=== PATIENT | female | born 1990 | race Caucasian/White ===

== ENCOUNTER 2023-01-17 08:11 | Outpatient (CLI) | payer BC, SELFPAY ==
--- NOTE | 2023-01-17 08:15 | CRLHL7_ITS ---
For Patients: As a result of the Century Cures Act, medical imaging exams and procedure reports are released immediately into your electronic medical record. You may view this report before your referring provider. If you have questions, please contact your health care provider. INDICATION: First trimester scan, establish dates. TECHNIQUE: Real-time garcia-scale imaging of the pelvis was performed. FINDINGS: Sonographic imaging demonstrates a single living intrauterine gestation. The embryo demonstrates a regular cardiac rate measuring 163 beats per minute. The embryo`s crown-rump length measurement of 1.7 cm corresponds to a gestational age of 8 weeks 1 day with a sonographic due date of 08/28/2023. There is a normal-appearing yolk sac. Small subchorionic hemorrhage measuring 1.6 x 0.7 x 1.4 centimeters. Right ovarian corpus luteum cyst. IMPRESSION: Normal first trimester OB ultrasound exam. Gestational age calculated at 8 weeks 1 day with a sonographic due date of 08/28/2023. Subchorionic hemorrhage measuring 1.6 x 0.7 x 1.4 centimeters. Dictated by Saida Lyles MD @ 01/17/2023 9:30:00 AM (Electronically Signed)
== END 2023-01-17 08:12 | disposition home or self-care (01) ==
LOC: US 08:12
PROVIDERS: PCP Family Medicine; Visit Provider Registered Nurse
DX: Z34.91 Encounter for supervision of normal pregnancy, unspecified, first trimester (principal); Z3A.08 8 weeks gestation of pregnancy
CPT/HCPCS: 76817; 82565; 82570; 84156; 84450; 84460; 84520; 86592; 86703; 86762; 86787; 86803; 86850; 86900; 86901; 87086; 87340; 87491; 87591

== ENCOUNTER 2023-01-21 13:45 | Outpatient (CLI) | payer BC, SELFPAY ==
[2023-01-21 18:11] LABS: Total Protein Urine 21 mg/dL
[2023-01-21 18:12] LABS: Creatinine Urine 30.7 mg/dL
[2023-01-21 18:26] LABS: Collection Time Urine 3100 Hours; Total Protein 24 Hour Urine 5 mg/dL; Total Volume 24 Hour Urine 24 ml; Urine Creatinine mg/24 Hour 0 mg/Day
== END 2023-01-21 13:46 | disposition home or self-care (01) ==
LOC: NFLDREF 13:45
PROVIDERS: Obstetrics & Gynecology; PCP Family Medicine; Visit Provider Registered Nurse
DX: Z87.59 Personal history of other complications of pregnancy, childbirth and the puerperium (principal)
CPT/HCPCS: 82570; 84156

== ENCOUNTER 2023-03-06 12:49 | Emergency (ER) | payer BC, SELFPAY ==
[2023-03-06 12:54] VITALS: BP 130/77; PULSE 97; TEMP 37.3; O2SAT 99; BMI 23.0
--- NOTE | 2023-03-06 13:21 | ED_ITS ---
HPI - Female Genitourinary General Chief complaint: Urogenital Problems, Female Stated complaint: Cannot urinate Time Seen by Provider: 03/06/23 12:52 History of Present Illness HPI Narrative: Patient is a 33-year-old woman who is 2 para 1 woman who comes in today with inability to urinate. Her 1st was complicated by early rupture the membranes and she spent 9 weeks at [facility] before having her baby. Patient was in [place] with this week ago and was unable to urinate. As result a catheter was placed and she drained over a L of urine. She has been able to for the most part into her bladder since but today is unable to empty her bladder at all. She has no dysuria no abdominal pain other than the distention of her bladder. She otherwise is feeling well the is going along just fine. There is no fever chills no vaginal discharge or bleeding. Related Data Home Medications Medication Instructions Recorded Confirmed docosahexaenoic acid 200 mg mg PO 01/17/23 02/14/23 capsule ( DHA) aspirin 81 mg tablet,delayed 81 mg PO QDAY 02/14/23 02/14/23 release pyridoxine (vitamin B6) 25 mg 25 mg PO TID 02/14/23 02/14/23 tablet Allergies Allergy/AdvReac Type Severity Reaction Status Date / Time Penicillins Allergy Severe Verified 03/06/23 12:54 Review of Systems Status of ROS: Reports: 10 or more systems reviewed and unremarkable except as noted in History and below PFSH PFSH Surgical History History of wisdom tooth extraction ?K08.409 - Partial loss of teeth, unspecified cause, unspecified class (ICD- 10) Family History Maternal Grandmother Colon cancer Paternal Grandmother Breast cancer Family/Other Ovarian cancer Family/Other Lymphoma Mother High blood pressure Social History Narrative: . 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 Nonsmoker. Smoking Status: Never smoker Do you use any of these nicotine containing products: None Second hand tobacco smoke exposure: No How often do you have a drink containing alcohol: never How often do you have six or more drinks on one occasion: Never AUDIT-C Alcohol total score: 0 Non-prescribed substance use: denies use Little interest or pleasure in doing things: not at all Feeling down, depressed, or hopeless: not at all service: No Exam Narrative: Exam Narrative: EXAM GENERAL: Patient appears comfortable and well. EYES: No scleral icterus. LYMPH: No supraclavicular or cervical lymphadenopathy. SKIN: Visible skin seen during exam normal or with benign process only. EXT: No dependent lower extremity pedal edema. HEART: Regular rate and rhythm with no murmurs, rubs, or gallops. LUNGS: Clear to auscultation bilaterally with no crackles or wheezes. ABD: Soft, non tender, non distended. PSYCH: Good eye contact, speech is not pressured. Const: Vital Signs, click to edit/add: Vital Signs - 24 hr 03/06/23 12:54 Temperature 99.1 F Pulse Rate [Pulse Oximeter] 97 Blood Pressure [Ri ght Upper Arm] 130/77 Pulse Oximetry 99 Oxygen Delivery Me thod Room Air Course Course Hospital Course: Patient seen examined. I did consult with OBGYN in the did recommend running a UA which we did. We did place Tomlinson catheter and OB did recommend that we leave the catheter in place until she follows up as an outpatient. Vital Signs Vital signs: Initial Vital Signs Temperature 99.1 F 03/06/23 12:54 Temperature Source Temporal Artery Scan 03/06/23 12:54 Pulse Rate 97 03/06/23 12:54 Pulse Rhythm Regular 03/06/23 12:54 Blood Pressure 130/77 03/06/23 12:54 Blood Pressure Mean 94 03/06/23 12:54 Blood Pressure Position Supine 03/06/23 12:54 Pulse Oximetry 99 03/06/23 12:54 Oxygen Delivery Method Room Air 03/06/23 12:54 Vital Signs Temperature 99.1 F 03/06/23 12:54 Pulse Rate 97 03/06/23 12:54 Blood Pressure 130/77 03/06/23 12:54 Pulse Oximetry 99 03/06/23 12:54 Oxygen Delivery Method Room Air 03/06/23 12:54 Temperature 99.1 F 03/06/23 12:54 Pulse Rate 97 03/06/23 12:54 Blood Pressure 130/77 03/06/23 12:54 Pulse Oximetry 99 03/06/23 12:54 Oxygen Delivery Method Room Air 03/06/23 12:54 MDM - Female Genitourinary MDM Narrative Medical decision making narrative: Patient presents 21 weeks with inability to urinate. I did consult with OBGYN in the do feel like this is likely secondary to positional development of the fetus and expansion of the uterus. After explaining the risks and benefits we did place a Tomlinson catheter and left in place. She will continue her current care will follow-up with her OBGYN as outpatient next few days. Differential diagnosis included but not limited to urinary obstruction, urinary tract infection, spontaneous , acute abdomen cystitis Differential Diagnosis Differential diagnosis: Likely urinary tract infection Discharge Plan Discharge Clinical Impression: Acute urinary retention Condition: Improved Instructions: Acute Urinary Retention in Women (ED) Additional Instructions: Tomlinson catheter care as discussed Continue previous care Follow-up with OBGYN in the next few days. Activity Level: No Restrictions Discharge Diet: Regular Prescriptions: No Action DHA 200 mg capsule PO aspirin 81 mg tablet,delayed release (DR/EC) 81 mg PO QDAY pyridoxine (vitamin B6) 25 mg tablet 25 mg PO TID Follow Up/Referrals: Lakshmi Cramer MD [Primary Care Provider] - Stand Alone Forms: [employer] Info Instructions
[2023-03-06 13:42] LABS: Appearance Urine Slightly Cloudy (Clear); Bilirubin Urine Negative (Negative); Blood Urine Negative (Negative); Color Urine Yellow (Yellow); Glucose Urine Negative (Negative); Ketones Urine Negative (Negative); Leukocyte Esterase Urine Negative (Negative); Nitrite Urine Negative (Negative); Protein Urine Negative (Negative); Urobilinogen Urine 0.2 (0.2-1.0); pH Urine 7.5 (5.0-8.5)
[2023-03-06 14:27] LABS: RBC Urine 0-2 (0-2); WBC Urine 0-2 (0-5)
--- NOTE | 2023-03-06 14:40 | ED.NURSE ---
did instruct dolores on proper catheter care. did place leg bag and written material was given. had 650 ml emptied from catheter bag. a #14 fr velasco was inserted at 1440.
== END 2023-03-06 14:40 | disposition home or self-care (01) ==
LOC: ED 13:44
PROVIDERS: Emergency Provider Internal Medicine; PCP Family Medicine
DX: R33.9 Retention of urine, unspecified (principal)
CPT/HCPCS: 51702; 81003; 81015; 99283

== ENCOUNTER 2023-03-14 07:17 | Outpatient (CLI) | payer BC, SELFPAY ==
--- NOTE | 2023-03-14 07:15 | CRLHL7_ITS ---
For Patients: As a result of the Century Cures Act, medical imaging exams and procedure reports are released immediately into your electronic medical record. You may view this report before your referring provider. If you have questions, please contact your health care provider. INDICATION: Cervical length measurement and uterine position COMPARISON: 01/17/2023 TECHNIQUE: Real-time garcia-scale imaging of the pelvis was performed. FINDINGS: heart rate 131 beats per minute. Amniotic fluid normal with single deepest pocket 3.0 cm. Cervix is closed and measures 3.7 cm in length with transabdominal technique and measures 3.8 cm with transvaginal technique. The posterior placenta is located 4.3 cm from the internal cervical os. position is breech. IMPRESSION: Anteverted uterus. Closed cervix measuring 3.8 cm. Dictated by Owen Machuca MD @ 03/14/2023 11:38:02 AM (Electronically Signed)
== END 2023-03-14 07:18 | disposition home or self-care (01) ==
LOC: US 07:18
PROVIDERS: PCP Family Medicine; Visit Provider Obstetrics & Gynecology
DX: Z36.86 Encounter for antenatal screening for cervical length (principal)
CPT/HCPCS: 76816; 76817

== ENCOUNTER 2023-04-02 11:38 | Outpatient (CLI) | payer BC, SELFPAY ==
--- NOTE | 2023-04-02 11:45 | CRLHL7_ITS ---
For Patients: As a result of the Century Cures Act, medical imaging exams and procedure reports are released immediately into your electronic medical record. You may view this report before your referring provider. If you have questions, please contact your health care provider. INDICATION: LABOR COMPARISON: 03/14/2023 TECHNIQUE: Real-time garcia-scale imaging of the pelvis was performed. Transabdominal technique. FINDINGS: Cervix is closed and measures 4.7 cm. The uterus is heterogeneous on the left with areas of increased echotexture and a prominent fold. Normal vascularity is present. Placenta is not well evaluated on the current exam. heart rate measures 145 beats per minute. Normal amniotic fluid with single deepest pocket 5.8 cm. position harry breech. Placenta is posterior. IMPRESSION: Cervix is closed and measures 4.7 cm. Heterogeneous appearance of the left side of the uterus, indeterminate. Attention on anatomic survey recommended. Dictated by Owen Machuca MD @ 04/02/2023 12:46:35 PM (Electronically Signed)
== END 2023-04-02 11:39 | disposition home or self-care (01) ==
PROVIDERS: PCP Family Medicine; Visit Provider Obstetrics & Gynecology
DX: O47.00 False labor before 37 completed weeks of gestation, unspecified trimester (principal)
CPT/HCPCS: 76816

== ENCOUNTER 2023-04-09 12:27 | Outpatient (CLI) | payer BC, SELFPAY | END 2023-04-09 12:28 | disposition home or self-care (01) | LOC: US 12:27 | PROVIDERS: PCP Family Medicine; Visit Provider Pediatrics Neonatal-Perinatal Medicine | DX: O09.822 Supervision of pregnancy with history of in utero procedure during previous pregnancy, second trimester (principal); Z87.51 Personal history of pre-term labor; Z3A.19 19 weeks gestation of pregnancy | CPT/HCPCS: 76811 ==

== ENCOUNTER 2023-05-09 09:07 | Outpatient (CLI) | payer BC, SELFPAY ==
--- NOTE | 2023-05-09 09:15 | CRLHL7_ITS ---
For Patients: As a result of the Century Cures Act, medical imaging exams and procedure reports are released immediately into your electronic medical record. You may view this report before your referring provider. If you have questions, please contact your health care provider. INDICATION: history of pre-term labor COMPARISON: 04/09/2023 TECHNIQUE: Real time garcia scale imaging of the fetus was performed. FINDINGS: Sonographic imaging demonstrates a single living intrauterine gestation. Fetus demonstrates a regular cardiac rate of 143 beats per minute. Fetus has a transverse position, head maternal right. The placenta lies posterior without evidence of placenta previa. Amniotic fluid volume appears normal and there is a single deepest vertical pocket: 6.7 cm. The estimated weight is 696gm which lies at the 62nd %. On the prior OB ultrasound exam dated 03/30/2023 the estimated weight was at the 73rd%. BPD 44th percentile. HC 19th percentile. AC 56th percentile. FL 61st percentile. The HC/AC ratio measures 1.09 range (1.04-1.22). IMPRESSION: Sonographic gestational age 24 weeks 1 day and sonographic due date 08/28/2023. Good correlation with dates. Estimated weight 62nd percentile. Abdominal circumference 56th percentile. Dictated by Owen Machuca MD @ 05/09/2023 2:22:17 PM (Electronically Signed)
== END 2023-05-09 09:08 | disposition home or self-care (01) ==
LOC: US 09:08
PROVIDERS: PCP Family Medicine; Visit Provider Obstetrics & Gynecology
DX: O09.212 Supervision of pregnancy with history of pre-term labor, second trimester (principal); Z3A.24 24 weeks gestation of pregnancy
CPT/HCPCS: 76816

== ENCOUNTER 2023-05-23 12:02 | Outpatient (CLI) | payer BC, SELFPAY ==
--- NOTE | 2023-05-23 12:15 | CRLHL7_ITS ---
For Patients: As a result of the Century Cures Act, medical imaging exams and procedure reports are released immediately into your electronic medical record. You may view this report before your referring provider. If you have questions, please contact your health care provider. INDICATION: HX LABOR, CX LENGTH CHECK COMPARISON: 05/09/2023 TECHNIQUE: Real time garcia scale imaging of the fetus was performed. FINDINGS: Sonographic imaging demonstrates a single living intrauterine gestation. Fetus demonstrates a regular cardiac rate of 141 beats per minute. Fetus has a variable position. The placenta lies posteriorly. Amniotic fluid volume appears normal and there is a single deepest vertical pocket: 7.5 cm. The cervix is closed and measures 4.2 cm. IMPRESSION: Closed cervix measuring 4.2 cm. Dictated by Owen Machuca MD @ 05/23/2023 4:49:35 PM (Electronically Signed)
== END 2023-05-23 12:03 | disposition home or self-care (01) ==
LOC: US 12:03
PROVIDERS: PCP Family Medicine; Visit Provider Obstetrics & Gynecology
DX: O09.219 Supervision of pregnancy with history of pre-term labor, unspecified trimester (principal)
CPT/HCPCS: 76816

== ENCOUNTER 2023-06-06 08:05 | Outpatient (CLI) | payer BC, SELFPAY ==
--- NOTE | 2023-06-06 08:15 | CRLHL7_ITS ---
For Patients: As a result of the Century Cures Act, medical imaging exams and procedure reports are released immediately into your electronic medical record. You may view this report before your referring provider. If you have questions, please contact your health care provider. INDICATION: HX LABOR, GROWTH COMPARISON: 05/23/2023 TECHNIQUE: Real time garcia scale imaging of the fetus was performed. FINDINGS: Sonographic imaging demonstrates a single living intrauterine gestation. Fetus demonstrates a regular cardiac rate of 138 beats per minute. Fetus has a breech position. The placenta lies posteriorly. Amniotic fluid volume appears normal and there is a single deepest vertical pocket: 7.5 cm. The estimated weight is 1243gm which lies at the 58th %. On the prior OB ultrasound exam dated 05/09/2023 the estimated weight was at the 62nd%. BPD 40th percentile. HC 20th percentile. AC 70th percentile. FL 42nd present. The HC/AC ratio measures 1.04 range (1.01-1.21). IMPRESSION: Sonographic gestational age 28 weeks 2 days and sonographic due date 08/27/2023. Good correlation with dates. Normal interval growth. Estimated weight 58th percentile. Abdominal circumference 70th percentile. Dictated by Owen Machuca MD @ 06/06/2023 9:33:28 AM (Electronically Signed)
== END 2023-06-06 08:06 | disposition home or self-care (01) ==
LOC: US 08:06
PROVIDERS: PCP Family Medicine; Visit Provider Obstetrics & Gynecology
DX: O09.213 Supervision of pregnancy with history of pre-term labor, third trimester (principal); Z3A.28 28 weeks gestation of pregnancy
CPT/HCPCS: 76816; 86592

== ENCOUNTER 2023-07-04 08:17 | Outpatient (CLI) | payer BC, SELFPAY ==
--- NOTE | 2023-07-04 08:15 | CRLHL7_ITS ---
For Patients: As a result of the Century Cures Act, medical imaging exams and procedure reports are released immediately into your electronic medical record. You may view this report before your referring provider. If you have questions, please contact your health care provider. INDICATION: hx labor, growth COMPARISON: 06/06/2023 TECHNIQUE: Real time garcia scale imaging of the fetus was performed. FINDINGS: Sonographic imaging demonstrates a single living intrauterine gestation. Fetus demonstrates a regular cardiac rate of 132 beats per minute. Fetus has a transverse position. The placenta lies posteriorly. Amniotic fluid volume appears increased and there is a single deepest vertical pocket: 8.5 cm. TATE 27.2 cm. The estimated weight is 2046gm which lies at the 65th %. On the prior OB ultrasound exam dated 06/06/2023 the estimated weight was at the 58th%. BPD 72nd percentile. HC 33rd percentile. AC 73rd percentile. FL 53rd percentile. The HC/AC ratio measures 1.03 range (0.96-1.11). IMPRESSION: Sonographic gestational age 32 weeks 6 days and sonographic due date 08/23/2023. Sonographic age 6 days ahead of the clinical age. Estimated weight 65th percentile. Abdominal circumference 73rd percentile. Polyhydramnios. TATE 27.2 cm. Dictated by Owen Machuca MD @ 07/04/2023 9:12:39 AM (Electronically Signed)
== END 2023-07-04 08:18 | disposition home or self-care (01) ==
LOC: US 08:18
PROVIDERS: PCP Family Medicine; Visit Provider Obstetrics & Gynecology
DX: O36.63X0 Maternal care for excessive fetal growth, third trimester, not applicable or unspecified (principal); O40.3XX0 Polyhydramnios, third trimester, not applicable or unspecified; Z3A.32 32 weeks gestation of pregnancy; Z87.51 Personal history of pre-term labor
CPT/HCPCS: 76816

== ENCOUNTER 2023-07-09 08:29 | Outpatient (CLI) | payer BC, SELFPAY ==
--- NOTE | 2023-07-09 08:45 | CRLHL7_ITS ---
For Patients: As a result of the Century Cures Act, medical imaging exams and procedure reports are released immediately into your electronic medical record. You may view this report before your referring provider. If you have questions, please contact your health care provider. INDICATION: POLYHYDRAMNIOS, HX LABOR COMPARISON: 07/04/2023 TECHNIQUE: Real time garcia scale imaging of the fetus was performed. FINDINGS: Sonographic imaging demonstrates a single living intrauterine gestation. Fetus demonstrates a regular cardiac rate of 154 beats per minute. Fetus has a transverse position. The placenta lies posteriorly. Amniotic fluid volume appears normal and there is a single deepest vertical pocket: 6.4 cm. TATE 15.7 cm. Normal gross body movements, tone and respiratory activity. Cervix is closed and measures 3.4 cm. IMPRESSION: Biophysical profile 07/01. Closed cervix measuring 3.4 cm. Normal amniotic fluid. TATE 15.7 cm. Dictated by Owen Machuca MD @ 07/09/2023 9:23:04 AM (Electronically Signed)
== END 2023-07-09 08:30 | disposition home or self-care (01) ==
LOC: US 08:30
PROVIDERS: PCP Family Medicine; Visit Provider Obstetrics & Gynecology
DX: O40.9XX0 Polyhydramnios, unspecified trimester, not applicable or unspecified (principal)
CPT/HCPCS: 76819

== ENCOUNTER 2023-07-18 07:21 | Outpatient (CLI) | payer BC, SELFPAY ==
--- NOTE | 2023-07-18 07:15 | CRLHL7_ITS ---
For Patients: As a result of the Century Cures Act, medical imaging exams and procedure reports are released immediately into your electronic medical record. You may view this report before your referring provider. If you have questions, please contact your health care provider. INDICATION: POLYHYDRAMINOS COMPARISON: 07/09/2023 TECHNIQUE: Real time garcia scale imaging of the fetus was performed. Without non-stress testing. FINDINGS: Sonographic imaging demonstrates a single living intrauterine gestation. Fetus demonstrates a regular cardiac rate of 148 beats per minute. Fetus has a variable position. The amniotic fluid volume appears upper limits of normal and there is a single deepest pocket measurement of 9.3 cm. TATE is 25.7 cm. The fetus was active and demonstrated normal breathing movements. There was normal flexion and extension of the trunk and extremities. Normal nose and lips. IMPRESSION: Normal biophysical profile score of 8 out of 8. Upper limits of normal amniotic fluid with TATE 25.7 cm. Dictated by Owen Machuca MD @ 07/19/2023 4:10:30 PM (Electronically Signed)
== END 2023-07-18 07:22 | disposition home or self-care (01) ==
LOC: US 07:22
PROVIDERS: PCP Family Medicine; Visit Provider Obstetrics & Gynecology
DX: O40.9XX0 Polyhydramnios, unspecified trimester, not applicable or unspecified (principal)
CPT/HCPCS: 76819

== ENCOUNTER 2023-07-25 09:08 | Outpatient (CLI) | payer BC, SELFPAY ==
--- NOTE | 2023-07-25 09:15 | CRLHL7_ITS ---
For Patients: As a result of the Century Cures Act, medical imaging exams and procedure reports are released immediately into your electronic medical record. You may view this report before your referring provider. If you have questions, please contact your health care provider. INDICATION: POLYHYDRAMNIOS TECHNIQUE: Real time garcia scale imaging of the fetus was performed. COMPARISON: 07/18/2023 FINDINGS: Sonographic imaging demonstrates a single living intrauterine gestation. Fetus demonstrates a regular cardiac rate of 139 beats per minute. Fetus has a transverse position, head maternal right. The placenta lies posterior without evidence of placenta previa. Amniotic fluid volume appears upper limits of normal and there is a single deepest pocket of 10.3 cm. TATE 24.7 cm. The estimated weight is 2880gm which lies at the 81st %. On the prior OB ultrasound dated 07/04/2023 the estimated weight was at the 65th percentile. BPD 84th percentile. HC 84th percentile. AC 88th percentile. FL 50th percentile. The fetus was active and demonstrated normal breathing movements. There was normal flexion and extension of the trunk and extremities. IMPRESSION: Normal biophysical profile score 8/8. Sonographic gestational age 36 weeks 3 days and a sonographic due date 08/19/2023. Sonographic age 10 days ahead of the clinical age. Estimated weight 81st percentile. Abdominal circumference 88th percentile. Dictated by Owen Machuca MD @ 07/25/2023 1:20:30 PM (Electronically Signed)
== END 2023-07-25 09:09 | disposition home or self-care (01) ==
LOC: US 09:08
PROVIDERS: PCP Family Medicine; Visit Provider Obstetrics & Gynecology
DX: O40.3XX0 Polyhydramnios, third trimester, not applicable or unspecified (principal); Z3A.36 36 weeks gestation of pregnancy
CPT/HCPCS: 76816; 76819

== ENCOUNTER 2023-08-01 08:13 | Outpatient (CLI) | payer BC, SELFPAY ==
--- NOTE | 2023-08-01 08:15 | CRLHL7_ITS ---
For Patients: As a result of the Century Cures Act, medical imaging exams and procedure reports are released immediately into your electronic medical record. You may view this report before your referring provider. If you have questions, please contact your health care provider. INDICATION: POLYHYDRAMNIOS COMPARISON: 07/25/2023 TECHNIQUE: Real time garcia scale imaging of the fetus was performed. Without non-stress testing. FINDINGS: Sonographic imaging demonstrates a single living intrauterine gestation. Fetus demonstrates a regular cardiac rate of 134 beats per minute. Fetus has a cephalic position. The amniotic fluid volume appears increased and there is a single deepest pocket measurement of 8.2 cm. TATE 29.4 cm. The fetus was active and demonstrated normal breathing movements. There was normal flexion and extension of the trunk and extremities. IMPRESSION: Normal biophysical profile score of 8 out of 8. Dictated by Owen Machuca MD @ 08/01/2023 10:40:03 AM (Electronically Signed)
== END 2023-08-01 08:14 | disposition home or self-care (01) ==
LOC: US 08:14
PROVIDERS: PCP Family Medicine; Visit Provider Obstetrics & Gynecology
DX: O40.9XX0 Polyhydramnios, unspecified trimester, not applicable or unspecified (principal)
CPT/HCPCS: 76819; 87081; 87653

== ENCOUNTER 2023-08-08 08:18 | Outpatient (CLI) | payer BC, SELFPAY ==
--- NOTE | 2023-08-08 08:15 | CRLHL7_ITS ---
For Patients: As a result of the Century Cures Act, medical imaging exams and procedure reports are released immediately into your electronic medical record. You may view this report before your referring provider. If you have questions, please contact your health care provider. INDICATION: polyhydramnios COMPARISON: 08/01/2023 TECHNIQUE: Real time garcia scale imaging of the fetus was performed. Without non-stress testing. FINDINGS: Sonographic imaging demonstrates a single living intrauterine gestation. Fetus demonstrates a regular cardiac rate of 145 beats per minute. Fetus has a vertex position. The amniotic fluid volume appears increased and there is a single deepest pocket measurement of 8.2 cm. TATE 27.7 cm. The fetus was active and demonstrated normal breathing movements. There was normal flexion and extension of the trunk and extremities. IMPRESSION: Normal biophysical profile score of 8 out of 8. Polyhydramnios. TATE 27.7 cm. On the previous study, the TATE was 29.4 cm. Dictated by Owen Machuca MD @ 08/08/2023 11:38:33 AM (Electronically Signed)
== END 2023-08-08 08:19 | disposition home or self-care (01) ==
LOC: US 08:18
PROVIDERS: PCP Family Medicine; Visit Provider Obstetrics & Gynecology
DX: O40.9XX0 Polyhydramnios, unspecified trimester, not applicable or unspecified (principal)
CPT/HCPCS: 76819

== ENCOUNTER 2023-08-16 17:01 | Inpatient (IN) | payer BC, SELFPAY ==
[2023-08-16 17:16] VITALS: PULSE 84; O2SAT 98
[2023-08-16 17:17] VITALS: BP 116/78; PULSE 83; RESP 16; TEMP 36.9
[2023-08-16 17:23] VITALS: BMI 26.9
[2023-08-16 18:00] LABS: Basophils Absolute Auto 0.01 K/uL (0.00-0.30); Basophils Percent Auto 0.1 % (0.0-3.0); Eosinophils Absolute Auto 0.08 K/uL (0.00-0.50); Eosinophils Percent Auto 1.1 % (0.0-7.0); Hematocrit 32.3 % (33.0-51.0); Hemoglobin* 11.4 gm/dL (12.0-16.0); Immature Granulocytes Abs Auto 0.01 K/uL (0.00-0.30); Immature Granulocytes Pct Auto 0.1 %; Lymphocytes Absolute Auto 1.79 K/uL (0.90-2.90); Mean Corpuscular HGB Conc 35 gm/dL (32-36); Mean Corpuscular Hemoglobin 32 pg (26-34); Mean Corpuscular Volume 91 fL (80-100); Monocytes Percent Auto 8.3 % (0.0-11.0); Neutrophils Absolute Auto 4.94 K/uL (1.7-7.0); Neutrophils Percent Auto 66.4 % (42.0-72.0); Platelet Count* 213 K/uL (140-440); RDW Coefficient of Variation % 12.3 % (11.5-15.5); Red Blood Count 3.57 m/uL (4.00-5.20); White Blood Count* 7.45 K/uL (4.50-11.00)
[2023-08-16 18:02] LABS: Slide Review Reflex No
[2023-08-16] MEDS: miSOPROStoL 25 MCG/0.25 TABLET PO ×3 (18:27→22:37)
[2023-08-16 20:31] VITALS: BP 118/77; PULSE 65; TEMP 37.1
[2023-08-16 22:36] VITALS: BP 135/71; PULSE 53; TEMP 36.5
[2023-08-17] VITALS (35 sets, daily range): BP systolic 90–137; BP diastolic 51–82; PULSE 51–123; RESP 16–18; TEMP 36.6–37; O2SAT 95–100
[2023-08-17] MEDS: MORPHINE 10 MG/ML inj IM (02:24)
[2023-08-17] MEDS: hydrOXYzine pamoate 25 MG CAPSULE 100 MG PO (02:25)
[2023-08-17] MEDS: miSOPROStoL 25 MCG/0.25 TABLET PO ×2 (03:16→06:28)
--- NOTE | 2023-08-17 09:59 | P.OBHP_ITS ---
OB - H&P: HPI Labor/Induction History of Present Illness Time Seen by Provider: 08:30 Date Seen: 08/17/23 Chief complaint: Maternity : 2 Para: 1 Date of last menstrual period: 11/22/22 Estimated date of delivery: 08/29/23 Gestational age based on last menstrual period: 38 Indications for induction: other Narrative: Yoana Owens is a 33 year old female G2P 0101 at 38 weeks 2 days by LMP consistent with 1st trimester ultrasound who presents to [facility] for scheduled induction of labor secondary to moderate polyhydramnios. This has been complicated by advanced maternal age with normal screening, history of preeclampsia on prophylactic aspirin, history of delivery at 32 weeks following P PROM at 23 weeks. Patient reports no symptoms including difficulty breathing or pressure from the polyhydramnios. Normal movement, no bleeding, no leakage of fluid. No other significant health changes since her most recent visit. Specific Issues/Plans Spouse: Estevan Yun. Daughter: Adrianna. Baby: Girl! 1. AMA * MaterniT 21: Negative * Level 2 Dr. Card 04/09/23: Normal anatomy 2. History of PPROM at 23 weeks and delivery at 32 weeks * Reviewed records from [place] 07/2020 preconception counseling visit. Recommendations include: 12-13w first trimester anatomy. 12w start ASA. 16w cervical length screening, 18-20w anatomy scan. Would not prolong past 39w given h/o growth restriction and abruption in prior . * Referral placed for therapy: Sabine Underwood who specializes in traumatic events during and . * Per Dr. Card, continue cervical length screening every 2 weeks until 26 weeks and Q3-4 weeks growth scans * 05/09: EFW 62%tile, AC 56%tile. Cervical length 4.4 cm * 05/23: closed cervix 4.2 cm 3. History of preeclampsia and IUGR * 01/17/2023: Baseline preeclampsia labs: Creat 0.4, BUN 8, AST 17, ALT 14, hgb 12.2, plts 203. Urine P/C: 0.4 (H) * 24hr urine protein: 5mg * Rec. baby ASA at 12 wks * Biweekly testing (BPP alternating with NST) for IUGR if identified 4. Isolated Polyhydramnios * Dx on growth scan at 32 weeks (07/04): EWF 65%tile, AC 73%tile. SDP 8.5 cm and TATE 27.2 cm. Cx 4.0 cm * Normal 1 hr gtt and anatomy scan * No history of gestational or pre-gestation diabetes * Due to new abnormal finding and adverse outcomes in immediately preceding , will start weekly testing starting at 32 weeks with BPP * 07/31: TATE 29.4 cm, SDP 8.2 cm Flu: Completed COVID: Completed in boosted, she did receive the bivalent booster on 07/2022. Tdap: 06/20/2023 Delivery recommended at 39 weeks gestation (MFM given hx IUGR/abruption) - as of 08/08 desires KVNG, open to 40w6d IOL for poly History of Present Dating criteria: based on LMP care: good care Ultrasounds: normal 1st trimester US and normal mid trimester US Abnormal ultrasound findings: BPP on 08/15/2023 showed 8/8 but with an TATE of 34 giving a diagnosis of moderate polyhydramnios complications: other Medical complications: none Labs Blood type: O (+) positive Rubella: immune RPR/VDLR: nonreactive GBS status: negative HBsAG: negative Review of Systems Status of ROS: Reports: 10 or more systems reviewed and unremarkable except as noted in History and below Meds Home Medications and Allergies Home Medications Medication Instructions Recorded Confirmed Type docosahexaenoic acid 200 mg mg PO 01/17/23 08/15/23 History capsule ( DHA) aspirin 81 mg tablet,delayed 81 mg PO QDAY 02/14/23 08/16/23 History release docusate sodium 100 mg capsule 100 mg PO QDAY 03/14/23 08/15/23 History (Colace) polyethylene glycol 3350 17 4 g PO QDAY 03/14/23 08/16/23 History gram/dose oral powder (Miralax) Allergies Allergy/AdvReac Type Severity Reaction Status Date / Time Penicillins Allergy Severe Verified 08/15/23 08:43 OB - H&P: Exam Physical Exam: Vital signs: Temp Pulse Resp BP Pulse Ox 98.5 F 63 16 116/75 99 08/17/23 09:45 08/17/23 08:26 08/17/23 08:20 08/17/23 08:26 08/17/23 08:20 Constitutional: Constitutional: no acute distress and cooperative Routine Respiratory Exam: Comments: No increased work of breathing, easily conversant Routine Cardiovascular Exam: Cardiovascular: RRR Routine Abdominal Exam: Abdominal: Present soft; Absent guarding or tenderness Comments: Gravid Routine Exam: External: Absent lacerations, lesions or vulvar tenderness Perineum Description: Normal Detailed Labor and Delivery Exam: Patient Gravid: Yes Dilation (cm): 2 Effacement (%): 50 Cervix position: mid Consistency: medium Contraction frequency (min): 5 Contraction duration (sec): 50 Tachysystole: No Contraction intensity: Mild Comments: Controlled AROM performed with needling of membrane and slow constant release of clear fluid until no further effluence noted no changes in heart rate noted, no cord prolapse, and good engagement of head into pelvis Fetus (Single): Station: -2 Position: Transverse Amniotic Membrane Status: AROM Amniotic Membrane Fluid Description: Clear Heart Rate Baseline: 140 Monitor Accelerations: Present Monitor Decelerations: None Penitentiary Variability: Moderate (6-25) Routine Extremities Exam: Extremities: Absent calf tenderness or tenderness Routine Neurological Exam: Present alert and oriented X3 Routine Psychiatric Exam: Present normal affect, normal thought process, cooperative, good insight and good judgment OB - Results Labs Labs: Short CBC 08/16/23 Range/Units 17:52 WBC 7.45 (4.50-11.00) K/uL Hgb 11.4 L (12.0-16.0) gm/dL Hct 32.3 L (33.0-51.0) % Plt Count 213 (140-440) K/uL OB - Problem Based A/P Additional Plan (1) Polyhydramnios affecting : Problem details: TATE of 34 on most recent BPP, asymptomatic, indication for induction after 38 w eeks per MFM and consistent with ACOG guidelines Status: Acute Plan: Status post misoprostol cervical ripening overnight, Controlled AROM performed without complication, continue induction process with oxytocin augmentation. Discussed possible causes of polyhydramnios, including congenital anoma lies of the gastrointestinal tract, pediatrics aware and will be evaluated after delivery (2) Anemia affecting : Problem details: Hemoglobin on admission 11.4, normal range for 3rd trimester Status: Acute (3) History of prior with IUGR : Status: Acute (4) Advanced maternal age (AMA) in : Problem details: screening normal Status: Acute (5) History of premature rupture of membranes (PPROM): Problem details: at 23 weeks, delivered at 32 weeks. Will likely need cerclage with future . Status: Acute (6) History of delivery: Problem details: 32 weeks Status: Acute (7) History of pre-eclampsia: Problem details: On aspirin 81 mg daily during , no signs or symptoms at this time Status: Acute Delivery/Labor/Induction Plan Plan: induction Induction method: per misoprostol protocol
[2023-08-17] MEDS: OXYTOCIN 30 unit/500 ML in NS 30 UNIT/500 ML BAG IVPB (11:50)
[2023-08-17] MEDS: LACTATED RINGERS 1000 ML 1,000 ML 999 ML IV (14:07)
--- NOTE | 2023-08-17 14:23 | PM.OBPNL ---
Subjective Time Seen by Provider: 14: Date Seen: 08/17/23 Narrative: Patient is starting to feel contractions more severely in the past hour, now breathing and strong through each contraction, requesting an epidural. Objective Vital Signs: Last Vital Signs Temp 98.4 F 08/17/23 13:30 Pulse 63 08/17/23 08:26 Resp 16 08/17/23 08:20 BP 116/75 08/17/23 08:26 Pulse Ox 99 08/17/23 08:20 Pelvic Exam Dilation (cm): 10 Effacement (%): 100 Station: 0 Comments: Repeat cervical exam when starting pushing after ITN yields palpation of buttocks and retrieval of meconium confirming a change in presentation to breech. 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 We discussed the risks, benefits, and alternatives to the procedure including the following: Bleeding, infection, injury to other adjacent organs, VTE, injury to fetus. Patient's questions were answered and she provided written informed consent to proceed. Anesthesia notified and surgical team assembled.
[2023-08-17] MEDS: fentaNYL 100 MCG/2 ML inj 25 MCG INTRATHECA (14:33)
--- NOTE | 2023-08-17 16:40 | P.OBPRC_ITS ---
Procedure Date of procedure: 08/17/23 Pre-op diagnosis: breech presentation, polyhydramnios Post-op diagnosis: same Procedure Done: Global Will [facility] bill your pro fee for this procedure?: Yes Blood Loss Measurement Type: QBL Bakri Used: No IV fluids (mL): 1,700 Urine Output (mL): 200 Surgeon: Sushil Aleman MD Anesthesia type: General Findings: Viable female in breech presentation with Apgars of 7 and 9 at 1 and 5 minutes respectively, weight pending Normal fallopian tubes and ovaries bilaterally Extension of hysterotomy on left side into broad ligament and down to cervix hemorrhage secondary to bleeding from blood vessels of hysterotomy extension, initial uterine atony Procedure Name: Primary low-transverse Procedure Description: Indication: Patient is a 33-year-old female 101 at 38 weeks 2 days gestation who presented to [facility] for induction of labor secondary to moderate polyhydramnios with TATE 34 cm. She received misoprostol cervical ripening overnight followed by AROM via needling of membranes and controlled release of fluid. At that time cervical exam yielded a cephalic presentation with transverse position. Patient received oxytocin augmentation and progressed to 8 cm dilation at which time she requested an epidural. She continued to dilate quickly and was noted to be complete, and so anesthesia placed an I TN and patient prepared to push, at this point cervical exam yielded a buttocks and breech presentation was diagnosed. Due to the increased risk of planned vaginal breech delivery compared to Caesarean delivery, medical recommendation was made to proceed with surgery and patient agreed. We discussed the risks, benefits, and alternatives to the procedure including the following: Bleeding, infection, injury to other adjacent organs, VTE, injury to fetus. Patient's questions were answered and she provided written informed consent to proceed. Technique: Patient was taken to the operating room where she was placed in the dorsal supine position with a leftward tilt. Antibiotics including cefazolin and azithromycin were administered. A Tomlinson catheter was placed in her bladder. Patient was then prepped and draped in the usual sterile fashion. The patient received general anesthesia which was noted to be adequate prior to skin incision. A 10 blade scalpel used to create a Pfannenstiel incision 2 cm superior to the pubic symphysis and carried through the subcutaneous tissue to the underlying fascia. The fascia was then incised in the midline, the subcutaneous fat cleared from the fascia along the length of the skin incision, and then the fascial incision extended laterally with digital finger fracture. The rectus abdominus muscles were in the midline with digital pressure and the peritoneum entered with blunt finger pressure. The entire incision was then extended with blunt pressure. Aplastic double ring retractor system was placed, and the anterior abdominal wall manually swept with no visceral organs palpated or entrapped by the ring. A 10 blade scalpel was used to create a low-transverse incision in the uterus superior to the bladder flap, and manual pressure applied to the cranial and caudal aspects of the incision for extension. The fetus was delivered atraumatically with breech maneuvers in the following manner: the buttocks was grasped and elevated out of the pelvis and easily delivered out the abdominal wall, followed by the legs, torso. The arms were swept medial and inferior across the torso and delivered sequentially, followed by digital pressure on the maxilla bilaterally to deliver the head. The umbilical cord was clamped, cut, and the infant handed off to the pediatric care team for resuscitation a section of cord was clamped and held for gases if needed. The placenta was delivered spontaneously with gentle traction on the umbilical cord and external massage of the uterus. A lap sponge was used to clear the uterine cavity of all clots and debris. The hysterotomy was examined and extension along the left side noted into the broad ligament and down to the edge of the cervix. Uterine atony and excessive bleeding was noted and the patient received methylergonovine IM along with oxytocin IV. The cervical laceration was 1st repaired with a running lock suture of 0 Vicryl, followed by the broad ligament extension which was repaired and continued into the full hysterotomy repair in a running locked suture of 0 Vicryl. Hemostasis was achieved with a figure of X 0 Vicryl suture at the right corner and electrocoagulation. The remainder of the abdomen and pelvis was swept clear of all blood and clot, the pericolic gutters were bilaterally examined and noted to be free of fluid and clot. The plastic ring retractor was removed from the abdomen and a bladder blade placed to examine the hysterotomy, which remained hemostatic. The bladder flap and rectus muscles were examined and noted to be hemostatic. The fascial incision was closed with a running suture of 0 Vicryl. The subcutaneous tissue was less than 2 cm in depth and did not require reapproximation. Warm saline was used for irrigation and hemostasis of the subcutaneous tissue controlled with electrocoagulation. The skin incision was closed with a running subcuticular stitch of 4-0 Vicryl, Steri-Strips were placed over the incision, and a Mepilex bandage placed. External massage of the uterus was performed to clear the uterus and vagina of all blood and clot. Instrument, sponge, and needle counts were correct x2. The patient was awoken in the OR and transported to the PACU for recovery in stable condition. QBL for the surgery was 2100 mL and CBC and coag labs were drawn in the PACU. Complications: hemorrhage Condition: stable Disposition: PACU OB Delivery Proc Additional Procedures Tubal Ligation at the time of : No Other: No
--- NOTE | 2023-08-17 16:44 | W.PM.NB ---
Nerve Block Nerve Block Time Seen by Provider: 14:50 Date Seen: 08/17/23 Type of block requested by surgeon for post-operative analgesia: TAP Side: bilateral Time out performed: Yes Verification of patient name: Yes Verification of date of : Yes Site marking: site marked Name of person performing procedure: pati marks Continuous monitoring Was continuous monitoring of O2 sat, B/P, satellite project site monitor, recorded every 15 minutes?: Yes Procedure Checklist: sterile prep, needles and gloves Ultrasound guided. Images saved: Yes Medications given in 5ml increments after negative aspiration: Marcaine %: 0.25 mL: 30 and Exparel mL: 10 Patient tolerated procedure well: Yes Block Charges Block Charge (with Pro Fee): TAP Bilateral Use of Ultrasound Machine for Block: Yes- US Guidance/pain block
--- NOTE | 2023-08-17 16:46 | W.ANESCHARGE ---
Anesthesia Charges Start Date/Time Anesthesia Start Date: 08/17/23 Anesthesia Start Time: 14:50 Stop Date/Time Anesthesia Stop Date: 08/17/23 Anesthesia Stop Time: 16:04 Summary Emergency: [employer]
--- NOTE | 2023-08-17 16:47 | P.ANBPRC_ITS ---
PFSH PFSH Surgical History History of wisdom tooth extraction ?K08.409 - Partial loss of teeth, unspecified cause, unspecified class (ICD- 10) Family History Maternal Grandmother Colon cancer Paternal Grandmother Breast cancer Family/Other Ovarian cancer Family/Other Lymphoma Mother High blood pressure Social History Narrative: . 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 Nonsmoker. What is your current living situation?: I presently have a place to live Problems where you live: no known problems In the past 12 months, utilities in danger of being shut off: no In past 12 months, lack of transportation kept you from medical appts, meetings, work, or getting things needed for daily living: no In the past 12 mos, have been you worried that your food would run out before you had money to buy more?: never true In the past 12 mos, the food you bought just didn't last and you didn't have money to buy more?: never true Smoking Status: Never smoker Do you use any of these nicotine containing products: None Second hand tobacco smoke exposure: No How often do you have a drink containing alcohol: never How often do you have six or more drinks on one occasion: Never AUDIT-C Alcohol total score: 0 Non-prescribed substance use: denies use How often does anyone, including family, friends and others, physically hurt you : never How often does anyone, including family, friends and others, insult or talk down to you: never How often does anyone, including family, friends and others, threaten you with harm: never How often does anyone, including family, friends and others, scream or curse at you: never Little interest or pleasure in doing things: not at all Feeling down, depressed, or hopeless: not at all service: No Meds Home Medications and Allergies Home Medications Medication Instructions Recorded Confirmed Type docosahexaenoic acid 200 mg mg PO 01/17/23 08/15/23 History capsule ( DHA) aspirin 81 mg tablet,delayed 81 mg PO QDAY 02/14/23 08/16/23 History release docusate sodium 100 mg capsule 100 mg PO QDAY 04/21/23 09/22/23 History (Colace) polyethylene glycol 3350 17 4 g PO QDAY 03/14/23 08/16/23 History gram/dose oral powder (Miralax) Allergies Allergy/AdvReac Type Severity Reaction Status Date / Time Penicillins Allergy Severe Verified 08/15/23 08:43 Results Labs Labs: Laboratory Results - last 24 hr 08/16/23 17:52 WBC 7.45 RBC 3.57 L Hgb 11.4 L Hct 32.3 L MCV 91 MCH 32 MCHC 35 RDW Coeff of Rosa 12.3 Plt Count 213 Neut % (Auto) 66.4 Lymph % (Auto) 24.0 [place] % (Auto) 8.3 Eos % (Auto) 1.1 Baso % (Auto) 0.1 Neut # (Auto) 4.94 Lymph # (Auto) 1.79 [place] # (Auto) 0.60 Eos # (Auto) 0.08 Baso # (Auto) 0.01 Abs Immat Gran (auto) 0.01 Imm/Tot Granulo (auto) 0.1 Blood Type O Positive Antibody Screen NEGATIVE Vital Signs Vital Signs: Last Vital Signs Temp 97.8 F 08/17/23 16:30 Pulse 82 08/17/23 16:30 Resp 16 08/17/23 16:30 BP 103/71 08/17/23 16:30 Pulse Ox 100 08/17/23 16:30 O2 Del Method Room Air 08/17/23 16:30 Weight: 68.946 kg Height: 160.02 cm Anesthesia Procedures Intrathecal Patient Location: OB Start Time: 14:30 Stop Time: 14:38 Start Date: 08/17/23 Stop Date: 08/17/23 Reason for Block: procedure for pain Patient Position: sitting Preanesthetic Checklist: IV checked, site marked, risks and benefits discussed, surgical consent, monitors and equipment checked, pre-op evaluation, timeout performed and anesthesia consent Prep: chlorhexidine gluconate Monitoring: blood pressure monitoring, continuous pulse oximetry and heart rate Approach: midline Vertebral Space: lumbar (1-5) Needle Type: Sprotte Injection Technique: single-shot Needle Length (cm): 10 cm
[2023-08-17 17:04] LABS: Basophils Percent Auto 0.1 % (0.0-3.0); Eosinophils Percent Auto 0.1 % (0.0-7.0); Hematocrit 26.7 % (33.0-51.0); Hemoglobin* 9.4 gm/dL (12.0-16.0); Immature Granulocytes Pct Auto 0.2 %; Lymphocytes Percent Auto 5.3 % (20-44); Mean Corpuscular HGB Conc 35 gm/dL (32-36); Mean Corpuscular Hemoglobin 32 pg (26-34); Mean Corpuscular Volume 91 fL (80-100); Monocytes Percent Auto 4.4 % (0.0-11.0); Neutrophils Percent Auto 89.9 % (42.0-72.0); Platelet Count* 184 K/uL (140-440); RDW Coefficient of Variation % 12.4 % (11.5-15.5); Red Blood Count 2.92 m/uL (4.00-5.20); Slide Review Reflex No; White Blood Count* 16.29 K/uL (4.50-11.00)
[2023-08-17 17:07] LABS: Fibrinogen* 422 mg/dL (200-450); INR 0.91 (0.91-1.10); Prothrombin Time 12.9 Seconds
[2023-08-17 17:15] LABS: Partial Thromboplastin Time* 28 Seconds (23-33)
[2023-08-17] MEDS: ACETAMINOPHEN 500 MG TABLET 1000 MG PO (18:59)
[2023-08-17] MEDS: OXYCODONE 5 MG TABLET PO (19:57)
[2023-08-17] MEDS: LACTATED RINGERS 1000 ML 1,000 ML 125 ML IV (19:58)
[2023-08-17] MEDS: KETOROLAC 30 MG/ML inj IVP (22:19)
[2023-08-18] VITALS (8 sets, daily range): BP systolic 91–107; BP diastolic 55–69; PULSE 73–96; RESP 16–18; TEMP 36.5–36.8; O2SAT 97–99
[2023-08-18] MEDS: ACETAMINOPHEN 500 MG TABLET 1000 MG PO ×4 (00:35→21:02)
[2023-08-18] MEDS: OXYCODONE 5 MG TABLET PO ×5 (00:35→21:02)
[2023-08-18] MEDS: LACTATED RINGERS 1000 ML 1,000 ML 125 ML IV ×2 (04:00→17:38)
[2023-08-18] MEDS: KETOROLAC 30 MG/ML inj IVP ×3 (04:01→17:01)
--- NOTE | 2023-08-18 07:35 | PM.OBPNVD1 ---
OB - PN:Subj Subjective Date Seen: 08/18/23 Patient comments OB post-: pain well controlled, tolerating diet and flatus present infant status: and doing well [place] feeding status: exclusively Narrative: Yoana is a 33 y.o. who was admitted to [facility] for labor found to be breech when pushing and brought for a C/S.? She had an primary .? ? The patient feels well.? The pain is well controlled with current medications.? She has felt lightheaded when up walking to the bathroom. Her Hgb is 7.0 today and she has 1 unit PRBC ordered to be given today..? She is breast feeding and reports things are going well.? the patient has done well.? Vitals have been stable.? She has remained afebrile.? Has a good appetite, is tolerating a general diet.? She is voiding without difficulty.? She is passing gas and has not yet had a bowel movement.?? Has Small amount of rubra lochia.? OB - PN: Obj Exam Physical Exam: Vital signs: Temp Pulse Resp BP Pulse Ox O2 Del Method 97.9 F 77 16 91/55 L 97 Room Air 08/18/23 03:56 08/18/23 03:56 08/18/23 03:56 08/18/23 03:56 08/18/23 03:56 08/18/23 03:56 Narrative: GENERAL APPEARANCE:? normal affect, alert, no distress MOOD:? appropriate CHEST:? clear to auscultation HEART:? regular rate and rhythm ABDOMEN:? soft, non-tender the uterine fundus is At Umbilicus, Midline and is appropriate for the stage of recovery. EXTREMITIES:? normal and trace edema Incision: dressing intact, no drainage Urinary Catheter Management: Urethral: Cath placed during this visit: yes Urethral indwelling: Yes Reason for continuing: surgical procedure Insertion date: 08/17/23 OB - PN: Obj Data Labs Labs: Laboratory Results - last 24 hr 08/17/23 08/18/23 16:12 06:05 WBC 16.29 H RBC 2.92 L Hgb 9.4 L 7.0 L* Hct 26.7 L MCV 91 MCH 32 MCHC 35 RDW Coeff of Rosa 12.4 Plt Count 184 Neut % (Auto) 89.9 H Lymph % (Auto) 5.3 L [place] % (Auto) 4.4 Eos % (Auto) 0.1 Baso % (Auto) 0.1 Neut # (Auto) 14.60 H Lymph # (Auto) 0.90 [place] # (Auto) 0.70 Eos # (Auto) 0.00 Baso # (Auto) 0.00 Abs Immat Gran (auto) 0.00 Imm/Tot Granulo (auto) 0.2 INR 0.91 APTT 28 Fibrinogen 422 OB - PN: A/P Delivery Assessment and Plan (1) Polyhydramnios affecting : Problem details: TATE of 34 on most recent BPP, asymptomatic, indication for induction after 38 weeks per MFM and consistent with ACOG guidelines Status: Acute (2) Advanced maternal age (AMA) in : Problem details: screening normal Status: Acute (3) care and examination immediately after delivery: Status: Acute (4) Lactating mother: Status: Acute (5) Anemia due to acute blood loss: Status: Acute Plan day: 1 Plan: routine care Comments: Assessment/Plan?G 2 P 2 status post primary .? ?? 1.? Continue route PP cares? 2.? .? May see if desired? 3.? Anticipate discharge home tomorrow or the following day per pt preference? 4.? Acute anemia.? Iron supplement ordered, 1 unit PRBC today, repeat Hgb 8 hours after.?
[2023-08-18] MEDS: DOCUSATE SODIUM 100 MG CAPSULE PO ×2 (08:04→21:02)
[2023-08-18 17:13] LABS: Hemoglobin* 7.6 gm/dL (12.0-16.0)
[2023-08-18] MEDS: FERROUS SULFATE 325 MG TABLET PO (20:47)
[2023-08-19] VITALS (7 sets, daily range): BP systolic 97–115; BP diastolic 59–71; PULSE 80–87; RESP 16; TEMP 36.4–36.8; O2SAT 96–99
[2023-08-19] MEDS: IBUPROFEN 600 MG TABLET PO (01:05)
[2023-08-19] MEDS: OXYCODONE 5 MG TABLET PO ×2 (04:03→14:24)
[2023-08-19] MEDS: ACETAMINOPHEN 500 MG TABLET 1000 MG PO ×2 (04:03→14:24)
[2023-08-19 06:14] LABS: Hemoglobin* 6.9 gm/dL (12.0-16.0)
[2023-08-19] MEDS: DOCUSATE SODIUM 100 MG CAPSULE PO (08:29)
[2023-08-19 12:21] LABS: Hemoglobin* 9.1 gm/dL (12.0-16.0)
--- NOTE | 2023-08-19 12:48 | P.DS_ITS ---
DS: Providers Provider Date Seen: 08/19/23 Date of admission: 08/16/23 17:01 Primary care physician: Lakshmi Cramer MD Admitting Clinician: Sushil Aleman MD Attending Physician on discharge: Triny Hartman CNM DS: Diagnosis Discharge Diagnosis (1) care and examination immediately after delivery: Status: Acute (2) Anemia due to acute blood loss: Status: Acute (3) Lactating mother: Status: Acute (4) Status post section: Status: Acute Exam Narrative: Exam Narrative: GENERAL APPEARANCE:? normal affect, alert, no distress MOOD:? appropriate CHEST:? clear to auscultation HEART:? regular rate and rhythm ABDOMEN:? soft, non-tender the uterine fundus is at Umbilicus, Midline and is appropriate for the stage of recovery. EXTREMITIES:? normal and no edema Incision: Healing well, no surrounding erythema, abnormal induration or discharge Const: Vital Signs, click to edit/add: Vital Signs - 24 hr 08/18/23 14:04 08/18/23 20:44 08/19/23 01:18 Temperature 97.7 F 98.0 F 98.2 F Pulse Rate Pulse Rate [Left P ulse Oximeter] 74 83 82 Respiratory Rate 16 16 16 Blood Pressure Blood Pressure [Ri ght Arm] 96/58 L 99/60 99/59 L Pulse Oximetry 97 97 96 Oxygen Delivery Me thod Room Air Room Air 08/19/23 04:25 08/19/23 08:01 08/19/23 08:12 Temperature 97.8 F 97.7 F 97.7 F Pulse Rate 82 Pulse Rate [Left P ulse Oximeter] 82 87 Respiratory Rate 16 16 16 Blood Pressure 104/67 Blood Pressure [Ri ght Arm] 115/71 104/67 Pulse Oximetry 97 98 98 Oxygen Delivery Me thod Room Air Room Air 08/19/23 08:15 08/19/23 09:15 08/19/23 10:05 Temperature 98.3 F 97.6 F 98.3 F Pulse Rate 80 80 85 Pulse Rate [Left P ulse Oximeter] Respiratory Rate 16 16 16 Blood Pressure 100/65 97/60 104/66 Blood Pressure [Ri ght Arm] Pulse Oximetry 99 97 97 Oxygen Delivery Me thod OB - DS: Summary Hospital Course Hospital Course: Yoana is a 33 year old G 2 P 1102 at 38.1 weeks gestation that was admitted to the [facility] on 08/16/23 for induction of labor for polyhydramnios. She had a section delivery complicated by PPH of 2100. She delivered a viable female infant. The patient feels well. ?The pain is well controlled with current medications. ?She has no new complaints. ?She is breast feeding and reports things are going well. the patient was initially symptomatic from blood loss. She recieved on unit RBC yesterday. Today, hemoglobin was 6.9 and she received another unit of RBC. She is now doing well.? Vitals have been stable.? She has remained afebrile.? Has a good appetite, is tolerating a general diet. ?She is voiding without difficulty.? She is passing gas and has had a bowel movement.? She is ambulating and denies any dizziness.? Has small amount of rubra lochia. She desires to go home today. She is planning condoms for prevention until her has a vasectomy. Problems: Anemia plan: Discharge home with baby. Follow up in 2 weeks and 6 weeks. , may see if needed Hgb 9.1, up from 6.9 after 2 units of RBC. Iron supplement ordered orally every other day Peripartum Data delivery method: Primary C/S; Labored Procedures: Procedures Operation Date: 08/17/23 15:15 Actual Procedure Side Surgeon p Section Sushil Aleman MD complications: transfusion (x2) [place] Infant Gender: Female Infant Discharge Plan: Home Status at Discharge Functional status at discharge: independent ambulation Overall status at discharge: patient is progressing back to baseline Time Spent with Patient Time attestation: Total time spent providing and/or coordinating discharge services: Discharge Plan Discharge Disposition: Home, Self-Care Date of Admission: 08/16/23 17:01 Attending Provider on Discharge: Triny Hartman Primary Care Provider: Lakshmi Cramer Condition: Stable Anticipated Discharge Date/Time: 08/19/23 13:00 Discharge Medications: New docusate sodium 100 mg Capsule 100 mg PO BID Qty: 90 0RF ibuprofen 600 mg Tablet 600 mg PO Q6H PRN (Reason: Pain) Qty: 60 0RF oxycodone 5 mg Tablet 5 - 10 mg PO Q4H PRN (Reason: Pain) Qty: 20 0RF oxycodone 5 mg tablet 5 mg PO Q6H PRN (Reason: pain) Qty: 20 0RF acetaminophen 500 mg Tablet 1,000 mg PO Q6H PRN (Reason: Pain) Qty: 0 0RF Continued DHA 200 mg capsule PO polyethylene glycol 3350 [Miralax] 17 gram/dose powder 4 g PO QDAY docusate sodium [Colace] 100 mg capsule 100 mg PO QDAY ferrous sulfate 325 mg (65 mg iron) tablet 325 mg PO BID Qty: 90 0RF Rx Instructions: Take 2 tablets twice a day, every other day. Discontinued aspirin 81 mg tablet,delayed release (DR/EC) 81 mg PO QDAY Discharge Orders: Discharge Order (Routine); Ordered 08/19/23 Ordered By: Triny Hartman Patient Education: OB Over the Counter Medication Information, OB /Breast Feeding Additional Instructions: Discharge instructions were reviewed with the patient including signs and symptoms of infection and home going medications Lifting Restrictions: 20 pounds for 6 weeks No not submerge incision under water X 2 weeks? Nothing vaginally for 6 weeks: no tampons or intercourse Do not drive while taking narcotic pain medication(s) Off Work or School for 8 weeks 2-week visit: incision check, discuss feeding concerns, review control options and screen for anxiety/depression. 6-week visit for an annual exam. consultation services are available to all mothers and babies for the first year after delivery.? To make an appointment, please call [phone]. Activity Level: Activity as Tolerated Discharge Diet: Regular Follow Up Appointments: [facility] [Provider Group] Forms: MyHealth Info Instructions
== END 2023-08-19 15:15 | disposition home or self-care (01) | DRG 540 ==
PROVIDERS: Advanced Practice Midwife; Obstetrics & Gynecology; Admitting Provider Obstetrics & Gynecology; PCP Family Medicine; Visit Provider Obstetrics & Gynecology
PROC: 3E0P7VZ Introduction of Hormone into Female Reproductive, Via Natural or Artificial Opening (ICD-10-PCS; CPT 59514; principal; 2023-08-17 15:00)
DX: O40.3XX0 Polyhydramnios, third trimester, not applicable or unspecified (principal); O32.1XX0 Maternal care for breech presentation, not applicable or unspecified; O72.1 Other immediate postpartum hemorrhage; R42 Dizziness and giddiness; D62 Acute posthemorrhagic anemia; O90.81 Anemia of the puerperium; Z37.0 Single live birth; Z3A.38 38 weeks gestation of pregnancy; G89.18 Other acute postprocedural pain
CPT/HCPCS: 01961; 36415; 36430; 59200; 64488; 76819; 76942; 85018; 85025; 85384; 85610; 85730; 86850; 86900; 86901; 86922; 99140; A9270; C9290; J0330; J0665; J1100; J1170; J1200; J1885; J2210; J2270; J2371; J2405; J2590; J2704; J3010; J3490; J7120; P9016

== ENCOUNTER 2025-02-09 10:24 | Outpatient (CLI) | payer BC, SELFPAY ==
[2025-02-10 14:46] LABS: HPV Source Cervical/Vag; HPV, High Risk by TMA Not Detected
== END 2025-02-09 10:25 | disposition home or self-care (01) ==
PROVIDERS: PCP Family Medicine; Visit Provider Family Medicine
DX: D64.9 Anemia, unspecified (principal); R53.83 Other fatigue; Z12.4 Encounter for screening for malignant neoplasm of cervix; Z13.6 Encounter for screening for cardiovascular disorders
CPT/HCPCS: 80053; 80061; 82728; 87624; 87625; 88141; 88142

== ENCOUNTER 2025-06-02 22:30 | Emergency (ER) | payer BC, SELFPAY ==
[2025-06-02 22:36] VITALS: BP 138/80; PULSE 99; RESP 16; TEMP 36.4; O2SAT 100; BMI 23.0
[2025-06-02 22:48] LABS: Appearance Urine Clear (Clear)
--- NOTE | 2025-06-02 22:48 | ED.GENADULT ---
HPI - General Adult General Chief complaint: Fever Stated complaint: fever, back ache Time Seen by Provider: 06/02/25 22:39 Source: patient Mode of arrival: ambulatory Limitations: no limitations History of Present Illness HPI narrative: 35-year-old female presenting to [facility] with nausea, vomiting and fever. Patient states that she is on day 4 of treatment for UTI, took her 4th dose of Macrobid today. States that she has been feeling fine, dysuria and increased urinary frequency resolved. However today she started feeling unwell with nausea and then she vomited. She developed a fever at home of 100.6. She also has a low back ache. Pain is located in the center of the low back. She denies any abdominal pain. She denies cough or any respiratory symptoms. She states that she was recently traveling and got home from her trip to [place] on Friday. Her UTI was diagnosed while she was traveling. She denies any rashes. No diarrhea or constipation. No significant appetite changes. No headache, Vision changes or ear pain. No sore throat. No sick contacts that she is aware of. Related Data Home Medications ?Medication ?Instructions ?Recorded ?Confirmed nitrofurantoin 1 cap PO BID 06/02/25 06/02/25 monohydrate/macrocrystals 100 mg capsule Allergies Allergy/AdvReac Type Severity Reaction Status Date / Time Penicillins Allergy Severe Verified 02/09/25 09:59 Review of Systems Status of ROS: Reports: 10 or more systems reviewed and unremarkable except as noted in History and below [facility] Medical History Interstitial cystitis (2019) ?N30.10 - Interstitial cystitis (chronic) without hematuria (ICD-10) Anemia due to acute blood loss ?D62 - Acute posthemorrhagic anemia (ICD-10) History of premature rupture of membranes (PPROM) ?Z87.59 - Personal history of other complications of , childbirth and the puerperium (ICD-10) History of pre-eclampsia ?Z87.59 - Personal history of other complications of , childbirth and the puerperium (ICD-10) Anxiety ?F41.9 - Anxiety disorder, unspecified (ICD-10) Surgical History History of vaginal delivery (2019) Status post section (2022) ?Z98.891 - History of uterine scar from previous surgery (ICD-10) History of wisdom tooth extraction ?K08.409 - Partial loss of teeth, unspecified cause, unspecified class (ICD-10) Family History Maternal Grandmother Colon cancer, Onset Age: 90 Paternal Grandmother Breast cancer, Onset Age: 55 Lung cancer, Onset Age: 55 Family/Other Ovarian cancer Family/Other Lymphoma Paternal Grandfather Lymphoma Maternal Grandfather Diabetes Father Prostate cancer Social History Narrative: , 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, 2 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, had vasectomy Lifetime nonsmoker Rare alcohol use No drug use No formal exercise What is your current living situation?: I presently have a place to live Problems where you live: no known problems In the past 12 months, utilities in danger of being shut off: no In past 12 months, lack of transportation kept you from medical appts, meetings, work, or getting things needed for daily living: no In the past 12 mos, have been you worried that your food would run out before you had money to buy more?: never true In the past 12 mos, the food you bought just didn't last and you didn't have money to buy more?: never true Smoking Status: Never smoker Do you use any of these nicotine containing products: None Second hand tobacco smoke exposure: No How often do you have a drink containing alcohol: never How often do you have six or more drinks on one occasion: Never AUDIT-C Alcohol total score: 0 Non-prescribed substance use: denies use How often does anyone, including family, friends and others, physically hurt you: never How often does anyone, including family, friends and others, insult or talk down to you: never How often does anyone, including family, friends and others, threaten you with harm: never How often does anyone, including family, friends and others, scream or curse at you: never service: No Exam Narrative: Exam Narrative: Well-nourished well-developed patient in no acute distress. Alert and oriented. Answers questions appropriately. Mood and affect are appropriate. Thoughts are goal oriented and rational. No tangential or magical thinking noted. Patient speaks in full sentences without needing to catch her breath. HEENT: Normocephalic atraumatic. Pupils are equally round reactive to light. Extraocular muscles are intact. Conjunctivae are moist without any icterus noted. Moist mucous membranes. Posterior pharynx is normal. Neck is soft without any lymphadenopathy. Cardiovascular: Heart is regular rate and rhythm S1 and S2 are present without any murmurs. Lungs: Clear to auscultation bilaterally no wheezes rhonchi or rales are appreciated. Patient takes deep breaths without any discomfort. Abdomen: Soft and nontender nondistended with normal bowel sounds. Extremities: Bilateral lower extremities are without edema. Skin: Well perfused without any obvious rashes. Const: Vital Signs, click to edit/add: Vital Signs - 24 hr 06/02/25 22:36 06/02/25 23:10 Temperature 97.6 F 97.8 F Pulse Rate [Pulse Oximeter] 99 Respiratory Rate 16 16 Blood Pressure [Ri ght Upper Arm] 138/80 Pulse Oximetry 100 98 Oxygen Delivery Me thod Room Air Room Air Course Course ED Course: Differential diagnosis is very broad and includes anything from a viral illness to a UTI that is not responding to outpatient treatment. UA was unremarkable. CBC was unremarkable. Negative COVID and influenza. Chemistry show very mild hyponatremia hypokalemia, otherwise unremarkable. CRP is unremarkable. Normal lactate. I did draw blood and urine cultures given her recent infection in symptoms. Vital Signs Vital signs: Initial Vital Signs Temperature 97.6 F 06/02/25 22:36 Temperature Source Temporal Artery Scan 06/02/25 22:36 Pulse Rate 99 06/02/25 22:36 Respiratory Rate 16 06/02/25 22:36 Blood Pressure 138/80 06/02/25 22:36 Blood Pressure Mean 99 06/02/25 22:36 Blood Pressure Position Sitting 06/02/25 22:36 Pulse Oximetry 100 06/02/25 22:36 Oxygen Delivery Method Room Air 06/02/25 22:36 Vital Signs Temperature 97.6 F 06/02/25 22:36 Pulse Rate 99 06/02/25 22:36 Respiratory Rate 16 06/02/25 22:36 Blood Pressure 138/80 06/02/25 22:36 Pulse Oximetry 100 06/02/25 22:36 Oxygen Delivery Method Room Air 06/02/25 22:36 Temperature 97.8 F 06/02/25 23:10 Pulse Rate 99 06/02/25 22:36 Respiratory Rate 16 06/02/25 23:10 Blood Pressure 138/80 06/02/25 22:36 Pulse Oximetry 98 06/02/25 23:10 Oxygen Delivery Method Room Air 06/02/25 23:10 Medical Decision Making MDM Narrative Medical decision making narrative: 35-year-old female with vomiting x1 and fever at home. Early finishing antibiotic for UTI. No evidence of active infection on workup. Unclear etiology of her symptoms. She has been afebrile she has been here without treatment. Lab Data Lab results reviewed: Yes I reviewed the patient's lab results Labs: Lab Results 06/02/25 06/02/25 06/02/25 Range/Units 22:40 22:43 22:51 WBC 5.42 (4.50-11.00) K/uL RBC 4.48 (4.00-5.20) m/uL Hgb 13.4 (12.0-16.0) gm/dL Hct 38.4 (33.0-51.0) % MCV 86 (80-100) fL MCH 30 (26-34) pg MCHC 35 (32-36) gm/dL RDW Coeff of Rosa 11.5 (11.5-15.5) % Plt Count 185 (140-440) K/uL Neut % (Auto) 81.5 H (42.0-72.0) % Lymph % (Auto) 10.0 L (20-44) % Coke % (Auto) 6.6 (0.0-11.0) % Eos % (Auto) 1.7 (0.0-7.0) % Baso % (Auto) 0.0 (0.0-3.0) % Neut # (Auto) 4.40 (1.7-7.0) K/uL Lymph # (Auto) 0.50 L (0.90-2.90) K/uL Coke # (Auto) 0.40 (0.00-0.90) K/UL Eos # (Auto) 0.09 (0.00-0.50) K/uL Baso # (Auto) 0.00 (0.00-0.30) K/uL Abs Immat Gran (auto) 0.01 (0.00-0.30) K/uL Imm/Tot Granulo (auto) 0.2 % Sodium 134 L (135-149) mmol/L Potassium 3.5 L (3.6-5.1) mmol/L Chloride 101 (96-114) mmol/L Carbon Dioxide 26 (20-32) mmol/L Anion Gap 7 (7-15) mEq/L BUN 8 (5-24) mg/dL Creatinine 0.6 (0.5-1.5) mg/dL Estimated Creat Clear 106.19 Estimated GFR 118 ml/min Glucose 101 (60-115) mg/dL Lactate 0.6 (0.5-1.9) mmol/L Calcium 9.0 (8.4-10.6) mg/dL Total Bilirubin 1.5 (0.1-1.5) mg/dL Direct Bilirubin 0.0 (0.0-0.5) mg/dL AST 23 (12-35) U/L ALT 14 (4-35) U/L Alkaline Phosphatase 88 (40-150) U/L C-Reactive Protein < 0.5 L (0.5-1.0) mg/dL Total Protein 7.4 (6.0-8.3) g/dL Albumin 4.6 (3.3-5.0) g/dL Urine Color Yellow (Yellow) Urine Appearance Clear (Clear) Urine pH 7.0 (5.0-8.5) Ur Specific [place] 1.010 (1.000-1.030) Urine Protein Negative (Negative) Urine Glucose (UA) Negative (Negative) Urine Ketones Trace A (Negative) Urine Blood Negative (Negative) Urine Nitrite Negative (Negative) Urine Bilirubin Negative (Negative) Urine Urobilinogen 0.2 (0.2-1.0) Ur Leukocyte Esterase Negative (Negative) Urine RBC 0-2 (0-2) Urine WBC 0-2 (0-5) Ur Squamous Epith Cells Few (None-Few) Urine Bacteria None (None) Urine HCG, Qual Negative (Negative) SARS-CoV-2 (PCR) Negative SARS-CoV-2 (Negative) Influenza Type A (PCR) Negative PCR FLU A (Negative) Influenza Type B (PCR) Negative PCR FLU B (Negative) Discharge Plan Discharge Clinical Impression: Vomiting, Fever Patient Disposition: Home, Self-Care Condition: Stable Additional Instructions: No evidence of infection was found on your workup today. Finish your antibiotics as prescribed. Follow-up with your primary care provider as needed. Return to the ER if your symptoms worsen. Prescriptions: No Action nitrofurantoin monohyd/m-cryst 100 mg capsule 1 cap PO BID Follow Up/Referrals: Lakshmi Cramer MD [Primary Care Provider, Family Practice] Stand Alone Forms: [employer] Info Instructions
[2025-06-02 23:08] LABS: Lactate* 0.6 mmol/L (0.5-1.9)
[2025-06-02 23:10] VITALS: RESP 16; TEMP 36.6; O2SAT 98
[2025-06-02 23:16] LABS: Hematocrit 38.4 % (33.0-51.0); Hemoglobin* 13.4 gm/dL (12.0-16.0); Immature Granulocytes Abs Auto 0.01 K/uL (0.00-0.30); Immature Granulocytes Pct Auto 0.2 %; Lymphocytes Absolute Auto 0.50 K/uL (0.90-2.90); Mean Corpuscular HGB Conc 35 gm/dL (32-36); Mean Corpuscular Hemoglobin 30 pg (26-34); Mean Corpuscular Volume 86 fL (80-100); RDW Coefficient of Variation % 11.5 % (11.5-15.5); Red Blood Count 4.48 m/uL (4.00-5.20); White Blood Count* 5.42 K/uL (4.50-11.00)
[2025-06-02 23:17] LABS: Slide Review Reflex No
[2025-06-02 23:26] LABS: Ur HCG Qualitative* Negative (Negative)
[2025-06-02 23:52] LABS: Albumin* 4.6 g/dL (3.3-5.0); Chloride* 101 mmol/L (96-114); PCR FLU A Negative PCR FLU A (Negative); PCR FLU B Negative PCR FLU B (Negative); SARS PCR* Negative SARS-CoV-2 (Negative)
[2025-06-02 23:53] LABS: Potassium* 3.5 mmol/L (3.6-5.1); Sodium* 134 mmol/L (135-149)
[2025-06-02 23:55] LABS: Blood Urea Nitrogen* 8 mg/dL (5-24); Creatinine* 0.6 mg/dL (0.5-1.5); Est. Creatinine Clearance* 106.19; Estimated Glomerular Filt Rate 118 ml/min
[2025-06-02 23:56] LABS: Alanine Aminotransferase* 14 U/L (4-35); Alkaline Phosphatase* 88 U/L (40-150); Anion Gap 7 mEq/L (7-15); Aspartate Amino Transferase* 23 U/L (12-35); Bilirubin Direct* 0.0 mg/dL (0.0-0.5); Bilirubin Total* 1.5 mg/dL (0.1-1.5); Calcium* 9.0 mg/dL (8.4-10.6); Carbon Dioxide* 26 mmol/L (20-32); Glucose* 101 mg/dL (60-115); Total Protein* 7.4 g/dL (6.0-8.3)
== END 2025-06-03 00:15 | disposition home or self-care (01) ==
PROVIDERS: Emergency Provider Family Medicine; PCP Family Medicine
DX: R50.9 Fever, unspecified (principal); R11.10 Vomiting, unspecified
CPT/HCPCS: 36415; 80048; 80076; 81001; 81025; 83605; 85025; 86140; 87040; 87086; 87631; 99283; 99284

== ENCOUNTER 2025-08-09 13:51 | Outpatient (CLI) | payer BC, SELFPAY ==
[2025-08-09 22:45] LABS: Bacterial Vaginosis* Negative (Negative); Candida glab/krus NOT DETECTED (No Detected)
== END 2025-08-09 13:52 | disposition home or self-care (01) ==
LOC: FRMREF 13:51
PROVIDERS: PCP Family Medicine; Visit Provider Obstetrics & Gynecology
DX: N89.8 Other specified noninflammatory disorders of vagina (principal)
CPT/HCPCS: 81513; 87481; 87661